=== PATIENT | female | born 1950 | race Caucasian/White ===

== ENCOUNTER 2016-10-27 14:13 | Emergency (ER) | payer BC ==
[2016-10-27] MEDS ORDERED: VESICARE10 M1 PO (14:30)
[2016-10-27] MEDS ORDERED: ZOCOR40 M1 PO (14:30)
[2016-10-27] MEDS ORDERED: PREDNISOLONE ACE5 M1 RIGHT EYE (14:31)
[2016-10-27] MEDS ORDERED: OFLOXACIN5 M2 EACH EYE (14:31)
[2016-10-27] MEDS ORDERED: PREDNISONE20 M1 PO (15:00)
== END 2016-10-27 15:33 ==
LOC: EDMED 14:13
DX: G51.0 Bell's palsy (principal); E78.5 Hyperlipidemia, unspecified; Z98.49 Cataract extraction status, unspecified eye; Z98.890 Other specified postprocedural states; Z87.891 Personal history of nicotine dependence; Z79.899 Other long term (current) drug therapy